=== PATIENT | female | born 1940 | race Caucasian/White ===

== ENCOUNTER 2019-05-06 05:26 | Day surgery (SDC) | payer MEDICARE ==
[~2019-05-06] VITALS: Ht 162.6 cm; Wt 57.4 kg
[~2019-05-06 05:26] MED LIST: ALPR1TAB6 PO; AMLO10TA8 PO; BUPR75TA6 PO; BUSP5TAB2 PO; CINA30TA2 PO; LEVO88TA4 PO; LOSA25TA25 PO; MELA1TAB6 PO; NEFA150T PO; OMEG1CAP23 PO
[2019-05-06] MEDS ORDERED: LACTATED RINGERS 1,000 ML IV SCH (05:59)
[2019-05-06] MEDS ORDERED: LIDOCAINE-MPF 1%, 2ML INFIL ONE (06:00)
[2019-05-06 06:05] VITALS: BP 100/66
[2019-05-06] MEDS ORDERED: SODIUM CHLORIDE 0.9% 1,000 ML IV SCH (06:22)
[2019-05-06] MEDS ORDERED: EPINEPHRINE 1 MG/ML, 1ML ONE (06:54)
[2019-05-06] MEDS ORDERED: LIDOCAINE 1%-EPI 1:100K, 20ML ONE (06:54)
[2019-05-06] MEDS ORDERED: BUPIVACAINE/PF 0.5% ONE (06:54)
[2019-05-06] MEDS ORDERED: ACETAMINOPHEN 500 MG TABLET ONE (07:11)
[2019-05-06] MEDS ORDERED: FENTANYL PF 250 MCG/5ML ONE (07:24)
[2019-05-06] MEDS ORDERED: LIDOCAINE GEL 2%, 5ML ONE (07:26)
[2019-05-06] MEDS ORDERED: OXYcodone 5 MG/5 ML ORAL.SOL UDC PO PRN (07:30)
[2019-05-06] MEDS ORDERED: FENTANYL PF 100 MCG/2ML IV PRN (07:30)
[2019-05-06] MEDS ORDERED: MEPERIDINE/PF 25MG/ML,1ML IVPush PRN (07:30)
[2019-05-06] MEDS ORDERED: PROMETHAZINE 25 MG/ML, 1ML IV PRN (07:30)
[2019-05-06] MEDS ORDERED: HYDROmorphone 2 MG/ML, 1ML IVPush PRN (07:30)
[2019-05-06] MEDS ORDERED: LABETALOL 5MG/ML, 20ML IV PRN (07:30)
[2019-05-06] MEDS ORDERED: ACETAMINOPHEN 500 MG TABLET PO ONE (07:30)
[2019-05-06] MEDS ORDERED: HALOPERIDOL 5 MG/ML IV PRN (07:30)
[2019-05-06] MEDS ORDERED: hydrALAzine 20 MG/ML, 1ML IV PRN (07:30)
[2019-05-06] MEDS ORDERED: EPHEDRINE 50 MG/ML, 1ML ONE (08:06)
[2019-05-06] MEDS ORDERED: NEOSTIGMINE 1 MG/ML, 10ML ONE (08:37)
[2019-05-06] MEDS ORDERED: PROPOFOL 10 MG/ML, 20ML ONE (08:37)
[2019-05-06] MEDS ORDERED: DEXAMETHASONE 4 MG/ML, 1ML ONE (08:37)
[2019-05-06] MEDS ORDERED: SUCCINYLCHOLINE 20 MG/ML, 10ML ONE (08:37)
[2019-05-06] MEDS ORDERED: ONDANSETRON 2MG/ML, 2ML ONE (08:37)
[2019-05-06] MEDS ORDERED: CEFAZOLIN 1,000 MG ONE (08:37)
[2019-05-06] MEDS ORDERED: GLYCOPYRROLATE 0.2MG/1ML, 5ML ONE (08:37)
[2019-05-06] MEDS ORDERED: ROCURONIUM 10MG/ML,5ML ONE (08:37)
[2019-05-06] MEDS ORDERED: OMNIPAQUE 180 MG/ML, 20ML VIAL ONE (08:49)
== END 2019-05-06 11:08 | disposition home or self-care (01) ==
LOC: OUT 05:26
PROVIDERS: ATTEND Orthopaedic Surgery Orthopaedic Surgery of the Spine
DX: M80.08XA Age-related osteoporosis with current pathological fracture, vertebra(e), initial encounter for fracture (principal); I12.9 Hypertensive chronic kidney disease with stage 1 through stage 4 chronic kidney disease, or unspecified chronic kidney disease; N18.4 Chronic kidney disease, stage 4 (severe); E03.9 Hypothyroidism, unspecified; Z85.3 Personal history of malignant neoplasm of breast; Z90.12 Acquired absence of left breast and nipple; Z90.710 Acquired absence of both cervix and uterus; Z98.890 Other specified postprocedural states
CPT/HCPCS: 22513; 72080; 88307; 88311; C1713; J0171; J0330; J0690; J1100; J2405; J2704; J3010; J3490; J7030; Q9965; J2710